=== PATIENT | female | born 1945 | race Hispanic/Latino ===

== ENCOUNTER 2020-07-19 15:06 | Emergency (ER) | payer SELFPAY ==
[2020-07-19] MEDS ORDERED: ASPIRIN 325 MG TAB PO ONE (15:39)
[2020-07-19 16:06] LABS: Basophils % (Auto) 0.1 % (0.0-1.8); Hematocrit 29.2 % (30.3-42.9); Hemoglobin 9.6 gm/dl (10.1-14.3); Lymphocytes # (Auto) 0.8 K/mm3 (1.2-5.4); Lymphocytes % (Auto) 7.7 % (13.4-35.0); Mean Corpuscular HGB Conc 33 % (30-34); Mean Corpuscular Volume 84 fl (79-97); Monocytes # (Auto) 0.6 K/mm3 (0.0-0.8); Monocytes % (Auto) 5.8 % (0.0-7.3); Platelet Count 251 K/mm3 (140-440); Red Cell Distribution Width 16.9 % (13.2-15.2)
--- NOTE | 2020-07-19 16:22 | Event Note ---
ED Screening Note Date of service: 07/19/20 Time: 16:19 ED Screening Note: 75 yr old female with pmhx of GERD, asthma and hyperlipidemia presents to the ER today with complaints of left-sided pleuritic chest pain and shortness of breath. Patient states that she was exposed to Covid on July 05. She started having fevers on July 08. She saw her primary care doctor on July 10 and was diagnosed with Covid 19. She states that she was prescribed Medrol Dosepak, Z-Butch and Plaquenil which she had completed but she was not getting any better. She follow-up with her doctor about 2 to 3 days ago during which time she had a breathing treatment, steroid injection, I am antibiotics, and another Z-Butch but she states that she still not feeling any better. She reports intermittent fevers since symptoms started highest was 100.1 This initial assessment/diagnostic orders/clinical plan/treatment(s) is/are subject to change based on patients health status, clinical progression and re- assessment by fellow clinical providers in the ED. Further treatment and workup at subsequent clinical providers discretion. Patient/guardian urged not to elope from the ED as their condition may be serious if not clinically assessed and managed. Initial orders include: Labs/chest X/EKG
[2020-07-19 16:27] LABS: Alanine Aminotransferase 14 units/L (7-56); Albumin 3.4 g/dL (3.9-5); BUN/Creatinine Ratio 11; Blood Urea Nitrogen 9 mg/dL (7-17); Calcium 8.7 mg/dL (8.4-10.2); Hemolysis Index 3
--- NOTE | 2020-07-19 16:38 | XRay Report ---
CHEST 2 VIEWS INDICATION / CLINICAL INFORMATION: sob. COMPARISON: None available. FINDINGS: SUPPORT DEVICES: None. HEART / MEDIASTINUM: No significant abnormality. LUNGS / PLEURA: No significant pulmonary or pleural abnormality. No pneumothorax. ADDITIONAL FINDINGS: No significant additional findings. IMPRESSION: 1. No acute cardiopulmonary abnormality. Signer Name: Chad Harding MD Signed: 07/19/2020 4:33 PM Workstation Name: [id number]
--- NOTE | 2020-07-19 18:53 | Emergency Department Report ---
ED Shortness of Breath HPI - General Chief Complaint: Dyspnea/Respdistress Stated Complaint: BREATHING PROBLEM Time Seen by Provider: 07/19/20 18:35 Source: patient Mode of arrival: Ambulatory Limitations: No Limitations - History of Present Illness Initial Comments: 75-year-old female, history of asthma, hyperlipidemia, resents to ED with shortness of breath. Patient tested positive for COVID-19 on 07/10/2020. Patient was seen by her PCP and given a prescription for Medrol Dosepak, Z-Butch, and Plaquenil. Patient states over the last 3 days he has been feeling short of breath. She reports some pleuritic left-sided chest pain today. Patient states symptoms unrelieved with breathing treatment earlier. Patient did not receive a COVID-19 vaccine yet. MD Complaint: shortness of breath -: days(s) (3) Consistency: intermittent Improves With: nothing Worsens With: exertion Known History Of: asthma, other (COVID-19) Context: recent URI (COVID-19) Associated Symptoms: chest pain, fever, cough Treatments Prior to Arrival: bronchodilator - Related Data Home Oxygen Therapy: No Previous Rx's Medication Instructions Recorded Last Taken Type Naproxen [Naprosyn] 500 mg PO BID #20 tablet 07/19/20 Unknown Rx Allergies Allergy/AdvReac Type Severity Reaction Status Date / Time Sulfa (Sulfonamide AdvReac Swelling Verified 07/19/20 15:39 Antibiotics) ED Review of Systems ROS: Stated complaint: BREATHING PROBLEM Other details as noted in HPI Comment: All other systems reviewed and negative Constitutional: fever Respiratory: cough, shortness of breath Cardiovascular: chest pain Neurological: headache ED Past Medical Hx - Past Medical History Hx Asthma: Yes - Surgical History Additional Surgical History: hysterectomy. r shoulder rotator cuff - Social History Smoking Status: Never Smoker Substance Use Type: None - Medications Home Medications: Home Medications Medication Instructions Recorded Confirmed Last Taken Type Naproxen [Naprosyn] 500 mg PO BID #20 tablet 07/19/20 Unknown Rx ED Physical Exam - General Limitations: No Limitations General appearance: alert, in no apparent distress - Head Head exam: Present: atraumatic, normocephalic - Eye Eye exam: Present: normal appearance, EOMI - ENT ENT exam: Present: mucous membranes moist - Neck Neck exam: Present: normal inspection - Respiratory Respiratory exam: Present: normal lung sounds bilaterally. Absent: respiratory distress - Cardiovascular Cardiovascular Exam: Present: regular rate, normal rhythm - GI/Abdominal GI/Abdominal exam: Present: soft. Absent: distended, tenderness - Extremities Exam Extremities exam: Present: normal inspection. Absent: pedal edema, calf tenderness - Neurological Exam Neurological exam: Present: alert, oriented X3 - Psychiatric Psychiatric exam: Present: normal affect, normal mood - Skin Skin exam: Present: warm, dry, intact, normal color ED Course Vital Signs 07/19/20 07/19/20 15:34 20:17 Temperature 98.2 F 98.4 F Pulse Rate 82 80 Respiratory 22 20 Rate Blood Pressure 125/77 Blood Pressure 125/82 [Left] O2 Sat by Pulse 95 95 Oximetry ED Medical Decision Making - Lab Data Result diagrams: 07/19/20 15:50 07/19/20 15:50 - EKG Data -: EKG Interpreted by Me EKG shows normal: sinus rhythm, axis, intervals, QRS complexes, ST-T waves Rate: normal - EKG Data Interpretation: no acute changes - Radiology Data Radiology results: report reviewed, image reviewed - Medical Decision Making 75-year-old female, history of asthma, diagnosed with COVID-19, presents to ED with shortness of breath. O2 sats are normal at rest. With ambulation, O2 sat drops to 92% on room air. On exam lungs are clear. Chest x-ray is normal. D- dimer is normal. EKG shows no ST changes. Troponin is negative x2. Patient does not require admission at this time. She has already taken Z-Butch, Medrol Dosepak, hydroxychloroquine, prescribed by her PCP. Patient will be discharged at this time. Outpatient follow-up with PCP advised, return precautions given. - Differential Diagnosis PE, pneumonia, COVID-19 Critical care attestation.: If time is entered above; I have spent that time in minutes in the direct care of this critically ill patient, excluding procedure time. ED Disposition Clinical Impression: COVID-19, Dyspnea Disposition: -01 TO HOME OR SELFCARE Is pt being admited?: No Condition: Stable Instructions: Shortness of Breath, Adult, [id number] Prescriptions: Naproxen [Naprosyn] 500 mg PO BID #20 tablet Referrals: PRIMARY CARE, [Primary Care Provider] - 3-5 Days Time of Disposition: 20:23
[2020-07-19 18:59] LABS: INR 0.97 (0.87-1.13)
[2020-07-19 20:21] VITALS: BP 125/82
--- NOTE | 2020-07-21 13:41 | Electrocardiograph Report ---
[facility] Test Date: 2020-07-19 Test Time: 19:35:24 Pat Name: SHINE LOUISE Department: Room: Gender: F Spread Cutter: MATEO : 1945 Requested By: GENNY YOO Order Number: [id number] Reading MD: Noy Finnegan Measurements Intervals [place] Rate: 83 P: 50 [place]: 121 QRS: 45 QRSD: 101 T: 13 QT: 374 QTc: 441 Interpretive Statements Sinus rhythm No previous ECG available for comparison Electronically Signed On 07-21-2020 13:41:01 EDT by Noy Finnegan
== END 2020-07-19 22:00 | disposition home or self-care (01) ==
LOC: ED 15:06
DX: U07.1 COVID-19 (principal); R06.00 Dyspnea, unspecified; J45.909 Unspecified asthma, uncomplicated; Z79.899 Other long term (current) drug therapy; Z88.2 Allergy status to sulfonamides; Z90.710 Acquired absence of both cervix and uterus; Z98.890 Other specified postprocedural states
CPT/HCPCS: 36415; 71046; 80053; 84484; 85025; 85379; 85610; 85730; 93005